=== PATIENT | female | born 1980 | race Caucasian/White ===

== ENCOUNTER 2017-01-07 16:31 | Outpatient (CLI) | payer OTHER ==
--- NOTE | 2017-01-07 17:20 | DIAGNOSTIC IMAGING REPORT ---
PROCEDURE: CT ABD/PELVIS WITH CONTRAST CLINICAL INDICATION: LLQ ABD PAIN; LEFT FLANK PAIN; FEVER TECHNIQUE: 125 ml of Isovue 300 were injected intravenously and axial images were obtained of the entire abdomen and pelvis with sagittal and coronal reformations. COMPARISON: None. FINDINGS: ABDOMEN: Lung base are clear. Heart size is normal. Patchy enhancement of the mildly enlarged left kidney with minor perirenal inflammation suggestive of pyelonephritis. Small gallbladder polyp. Liver, pancreas, spleen, adrenal glands and right kidney are normal. Normal abdominal aorta. Nonspecific bowel gas pattern. PELVIS: Normal appendix. Uterus, adnexa and bladder are unremarkable. Trace free fluid. No pelvic mass or inflammatory changes. Bilateral L5 spondylolysis and grade 1 anterolisthesis. Mild L4-5 disc space narrowing. IMPRESSION: 1. Patchy enhancement of the left kidney consistent with pyelonephritis 2. Gallbladder polyp. 3. Bilateral L5 spondylolysis with grade 1 anterolisthesis 4. Results discussed with Dr. Bryant. All CT scans at this facility use dose modulation, iterative reconstruction, and/or weight-based dosing when appropriate to reduce radiation dose to as low as reasonably achievable.
== END 2017-01-07 23:00 ==
LOC: EDBD 16:31 → CT SRH 16:31
DX: K82.4 Cholesterolosis of gallbladder (principal); N12 Tubulo-interstitial nephritis, not specified as acute or chronic